=== PATIENT | female | born 1960 | race Caucasian/White ===

== ENCOUNTER 2025-02-23 08:50 | Outpatient (OUT) | payer MEDICARE, MEDICAID, SELFPAY ==
--- OUTSIDE RECORDS SUMMARY | 2014-12-31 06:00 | XMS_ITS | Continuity of Care Document ---
Author Organization [facility] Address [address] [place] [address] Phone Care Team Providers Care Transportation Coordinator Name Role Phone Danilo Godwin MD Unavailable Unavailable Procedures Procedure Date OFFICE CONSULTATION Advance Directives Directive Yes / No Effective Date File Name No Information Encounters Encounter Description Practice Location Reason(s) For Visit Diagnoses Date Provider Providers Copied on Encounter OFFICE CONSULTATION [facility], [address], [place], [place], [id number], [place] tel:[phone] [facility] No Information Tato Carrasco. [address], [place], [id number], [place]. tel:[phone] Referring Provider: Danilo Canales, [address], [place], [address]. tel:[phone] Family History Family Member Type Diagnosis Age At Onset No Information Payers Payer name Insurance type Covered democrat ID Authoriza tion(s) [place] [employer] CI [id number] Social History Type Description Quantity Date Captured Comments Sex Female Smoking Status No Information Chief Complaint And Reason For Visit No Information Reason For Referral Reason For Referral No Information History Of Present Illness Encounter Date Complaint History Of Prese nt Illness No Information Functional Status Date Functional Assessmen t No Information Instructions Date Instruction Additional Infor mation No Information Assessments Type Assessment Date No Information Patient Care Teams Name Effective Dates (start - stop) Status Members No Information
--- OUTSIDE RECORDS SUMMARY | 2025-02-22 05:57 | XMS_ITS | Continuity of Care Document ---
Author Organization [facility] Address [address] [place] [address] Phone Care Team Providers Care Cadet Deck Name Role Phone Roz Manley DO Primary Care Provider Roz Manley DO Attending Provider [phone] Care Teams Patient Care Team Team Status: Active Member Role Status Dates Roz Manley DO Primary Care Provider Active Patient Care Team Team Status: Inactive Member Role Status Dates Roz Manley DO Primary Care Provider Active S tart: February 22, 2025 End: February 22, 2025 Roz Manley DO Attending Provider Active Star t: February 22, 2025 End: February 22, 2025 Chief Complaint and Reason for Visit Chief Complaint Admit Date Migrain/UTI February 22, 2025 8: 59am Reason for Visit Admit Date Depression February 22, 2025 8: 59am Dysuria February 22, 2025 8: 59am Migraines February 22, 2025 8: 59am Obesity February 22, 2025 8: 59am Allergies, Adverse Reactions, Alerts Allergen Type Severity Reaction Last Updated Verified Status Penicillins Allergy Unknown Unknown Reaction February 22, 2025 9:13am Yes Active Social History Smoking Status Status Start Date End Date Date of Observa tion Never smoked tobacco (finding) February 22, 2025 9:12am Observation Status Observation Response Date of Response Legal Sex Female (finding) Sex Assigned At Female 1960 Family History Relationship Condition Age at Onset Recorded Date/T rehan father Myocardial infarction Unknown Diabetes mellitus Unknown Heart disease Unknown mother Hypertension Unknown Problems Active Problems Medical Problem Onset Date Status Depression Unknown Active Dysuria Unknown Active Migraines Unknown Active Obesity Unknown Active Medications Medication Status Dose Units Route Directions Qty Days St art Date Stop Date End Date Instructions Adherence Sertraline 100 mg tablet Discont inued 100 MG PO Daily Octobe r 2024 12:00a m Octob er 2024 9:44a m Albuterol Sulfate 90 mcg/actuati on HFA aerosol inhaler Discont inued 2 PUFF INHALA TION EVERY 4-6 HOURS as needed Octobe r 2024 12:00a m Octob er 2024 9:44a m Topiramate 50 mg tablet Discont inued 50 MG PO Twice daily Octobe r 2024 12:00a m Octob er 2024 9:44a m Topiramate 50 mg tablet Active 50 MG PO Twice daily 30 Octobe r 2024 9:43am Complies with drug therapy Sertraline 100 mg tablet Active 100 MG PO Daily 30 Febobe r 2024 9:43am Complies with drug therapy Albuterol Sulfate 90 mcg/actuati on HFA aerosol inhaler Active 2 PUFF INHALA TION EVERY 4-6 HOURS as needed for shortness of breath or wheezing 8.5 Febobe r 2024 9:43am Complies with drug therapy Vital Signs Vital Reading Result Reference Range Collection Date/Time Height 67 [in_i] February 22 9:05am Weight 125.64 kg February 22 9:05am Heart Rate 69 /min 60-100 February 22 9:05am Respiratory rate 20 /min -February 9:05am Oxygen saturation by Pulse oximetry 96 % 95-100 February 22, 2025 9: 05am BP Systolic 124 mm[Hg] 100-140 February 22 9:05am BP Diastolic 68 mm[Hg] 60-100 February 22 9:05am BMI (Body Mass Index) 43.4 kg/m2 Octobe r 2024 9:05am Advance Directives Advance Directive Response Recorded Date/ Time Advance Directives No January 11:40am Insurance Providers Guarantor Keisha Powell Address [address] [place] [address] Contact Info. Home Phone: Payer Policy Id Subscriber's Name Subscriber Id Effectiv e Date Expiration Date Medicare [id number] Keisha Powell [id number] Encounters Encounter Location(s) Arrival/Admit Date Discharge/Depart Date Provider(s) Departed Physician/Prov ider Office Visit -[facility] February 22, 2025 8:59am February 22, 2025 9:56am Roz Manley , Recent Diagnosis Onset Date Admit Date Depression Unknown February 22 8:59am Dysuria Unknown February 22 8:59am Migraines Unknown February 22 8:59am Obesity Unknown February 22 8:59am Assessments Diagnosis Onset Date Resolution Status Admit Date Depression acute February 22 8:59am Dysuria acute February 22 8:59am Migraines acute February 22 8:59am Obesity acute February 22 8:59am Plan of Treatment Author Roz Manley [facility] Authored February 22, 2025 9: 53am will check UA and urine cult ure and kidney function; if abnormal will consider renal ultrasound and prophylaxis; discussed cranberry suuplement continue zoloft; refill given refill given on Topamax will discuss further at next visit; get labs first Will send for fasting labs and UA/Urine culture return in 1 month for evaluation and further work up Future Tests Future scheduled test information is unavailable Pending Tests Test Name Ordered Date Scheduled Date Comprehensive Metabolic Panel February 22, 2025 9:44am Future Visits Future appointment information is unavailable Referrals to Other Providers Referral information is unavailable Future Procedures Procedure Name Ordered Date Scheduled Date Complete Blood Count Auto Diff February 22, 2025 9:44am Urine Culture February 22, 2025 9:44am Lipid Panel February 22, 2025 9:44am Urinalysis February 22, 2025 9:44am Future Medications Future medication information is unavailable Patient Instructions Patient instructions are unavailable
--- OUTSIDE RECORDS SUMMARY | 2025-02-23 09:01 | XMS_ITS | Clinical Summary ---
Author Organization [facility] Address [address] [place] [address] Care Team Providers Care Loan Processing Supervisor Name Role Phone Alejandro James MD Primary Care Provider [phone] Alejandro James MD Unavailable Allergies Active Allergy Reactions Criticality Noted Date Comments Penicillin G Unknown 09/10/2023 Medications SUMAtriptan (Imitrex) 100 MG tabletIndications: Migraine without aura and without status migrainosus, not intractable Take 1 tablet (100 mg) by mouth 1 (one) time if needed for migraine 9 tablet 5 4 Active albuterol HFA 90 mcg/act inhalerIndications :SOB (shortness of breath) Inhale 2 puffs every 4 (four) hours if needed for wheezing or shortness of breath 18 g 2 4 Active topiramate 50 MG tabletIndications: Migraine without aura and without status migrainosus, not intractable Take 50 mg by mouth in the morning and 50 mg before bedtime. 60 tablet 3 4 Active celecoxib (CeleBREX) 200 MG capsuleIndications :Primary osteoarthritis of both elbows TAKE 1 CAPSULE (200 MG) BY MOUTH 2 (TWO) TIMES A DAY NEEDED FOR MILD PAIN OR MODERATE PAIN 60 capsule 5 4 Active amitriptyline (Elavil) 50 MG tabletIndications: Migraine without aura and without status migrainosus, not intractable TAKE 1 TABLET BY MOUTH AT BEDTIME 90 tablet 1 4 Active sertraline (Zoloft) 100 MG tabletIndications: MDD (major depressive disorder), recurrent episode, moderate (HCC) TAKE 1 TABLET BY MOUTH EVERY DAY 90 tablet 1 5 Active lisinopril-hydroCH LOROthiazide 20-25 MG tabletIndications: Benign essential hypertension TAKE 1 TABLET BY MOUTH EVERY DAY 90 tablet 1 5 Active Active Problems Problem Noted Date Diagnosed Date Migraine without aura and wi thout status migrainosus, not intractable 06/12/2023 Assessment & Plan (09/10/2023 1:40 PM EDT): CHAUDHRY unchanged and increase topamax. Continue elavil. Use imitrex PRN. Assessment & Plan (06/12/2023 2:22 PM EST): CHAUDHRY more often and increase elavil. Use imitrex PRN. Chronic pain of left elbow 06/12/2023 Chronic pain of right ankle 06/12/2023 Dyslipidemia 06/12/2023 Hypersomnia, unspecified 06/12/2023 MDD (major depressive disord er), recurrent episode, moderate 06/12/2023 Assessment & Plan (09/10/2023 1:40 PM EDT): Symptoms unchanged and increase zoloft. Warned will take 2-3 months to notice improvement in mood. Assessment & Plan (06/12/2023 2:22 PM EST): Symptoms worse without zoloft and resume. Warned will take 2-3 months to notice improvement in mood. Primary osteoarthritis of both elbows 06/12/2023 Assessment & Plan (09/10/2023 1:39 PM EDT): Pain and stiffness unchanged and continue celebrex. Increase activity and walk regularly. Assessment & Plan (06/12/2023 2:22 PM EST): Pain and stiffness unchanged and resume celebrex. Morbid obesity 06/12/2023 Assessment & Plan (09/10/2023 1:39 PM EDT): Discussed proper diet and regular aerobic exercise. Recommend Weight Watchers and need to limit calories and smaller portions. Need to increase activity and regular aerobic exercise several days a week for 30 minutes at a time. Seasonal allergic rhinitis due to pollen 024 Assessment & Plan (09/10/2023 1:39 PM EDT): Symptoms controlled with medication and continue. Assessment & Plan (06/12/2023 2:22 PM EST): Symptoms controlled with medication and continue. Primary osteoarthritis, right ankle and foot Assessment & Plan (09/10/2023 1:39 PM EDT): Pain and stiffness unchanged and continue celebrex. Increase activity and walk regularly. Assessment & Plan (06/12/2023 2:22 PM EST): Pain and stiffness unchanged and resume celebrex. Encounter for long-term (current) use of medicat ions 06/12/2023 Benign essential hypertension 04/22/2023 Assessment & Plan (09/10/2023 1:40 PM EDT): BP controlled and monitor PRN. Assessment & Plan (06/12/2023 2:21 PM EST): BP controlled and monitor PRN. Family History Medical History Relation Name Comments Diabetes Father Heart disease Father Hypertension Mother Relation Name Status Comments Father Mother Social History Tobacco Use Types Packs/Day Years Used Date Smoking Tobacco: Never Smokeless Tobacco: Never Tobacco Cessation:Counseling Given: Not Answered Comments Unknown Sex and Gender Information Value Date Recorded Sex Assigned at Not on file Legal Sex Female 11:01 PM EDT Gender Identity Not on file Sexual Orientation Not on file Last Filed Vital Signs Vital Sign Reading Time Taken Comments Blood Pressure 140/76 09/10/2023 1:14 PM EDT Pulse 107 09/10/2023 1:14 PM EDT Temperature 36.7 C (98 F) 09/10/2023 1:14 PM EDT Respiratory Rate 18 09/10/2023 1:14 PM EDT Oxygen Saturation 96% 09/10/2023 1:14 PM EDT Inhaled Oxygen Concentration - - Weight 129 kg (284 lb) 09/10/2023 1:14 PM EDT Height 170.2 cm (5' 7 ) 09/10/2023 1:14 PM EDT Body Mass Index 44.48 09/10/2023 1:14 PM EDT Plan of Treatment Health Maintenance Due Date Last Done Comments CT Colonography 1960 Colonoscopy 1960 FIT 1960 FOBT 1960 Medicare Annual Wellness (AWV) 1960 Sigmoidoscopy 1960 Pap Smear 11/03/1980 Cervical Cancer Screening 11/03/1989 HPV/Cotest 11/03/1989 Pneumococcal Vaccine: 65+ Ye ars (2 of 2 - PCV) 08/01/2018 08/01/2017 Mammogram 06/21/2024 06/21/2023, 06/19/2023 Influenza Vaccine (#1) 2025 9, 08/01/2017, 01/25/2015, Additional history exists Colorectal Cancer Screening 07/04/2026 FIT-DNA 07/04/2026 07/04/2023 Procedures Procedure Name Priority Date/Time Associated Diagnosis Comments LAB COLOGUARD COLON CANCER SCREEN Routine 07/04/2023 10:20 AM EST BI MAMMOGRAM SCREENING TOMOSYNTHESIS BILATERAL Routine 06/19/2023 3:20 PM EST Screening mammogram for breast cancer from Last 3 Months or Most Recently Relevant to Health Maintenance Results * Cologuard?? colon cancer screening (07/04/2023 10:20 AM EST) Stool Alejandro James MD LAB MOLECULAR DIAGNOSTICS ORDERA BLES Final Result * Bilateral screening mammogram with tomosynthesis (06/19/2023 3:20 PM EST) Anatomical Region Laterality Modality Breast Bilateral Mammography 06/21/2023 1:53 PM EST Impressions 06/21/2023 2:40 PM EST BIRADS 2 - Benign Follow-up: Routine Screening Mamm Board Certified Radiologists. Accredited by the ACR and FDA. MAMMOGRAPHY IS VERY IMPORTANT TO YOUR HEALTH. THE [place] [employer] GUIDELINES RECOMMEND THAT WOMEN 40 YEARS OF AGE AND OLDER SHOULD HAVE A MAMMOGRAM EVERY YEAR. A REMINDER LETTER WILL BE SENT AT THE APPROPRIATE TIME. THIS FACILITY UTILIZES A REMINDER SYSTEM TO ENSURE ALL PATIENTS RECEIVE REMINDER NOTIFICATIONS AT THE APPROPRIATE TIME BASED ON THE RECOMMENDATIONS OF THIS EXAM. THIS INCLUDES REMINDERS FOR ROUTINE SCREENING MAMMOGRAMS, DIAGNOSTIC MAMMOGRAMS IN WHICH THE PATIENT IS ASKED TO RETURN FOR ADDITIONAL VIEWS, OR OTHER BREAST IMAGING INTERVENTIONS WHEN APPROPRIATE. THE PATIENT WILL BE PLACED IN THE APPROPRIATE REMINDER SYSTEM INCLUDING A REMINDER AT THE APPROPRIATE TIME FOR ANY PENDING ADDITIONAL VIEWS. TRANSCRIBED BY: ELECTRONICALLY SIGNED BY: Mars Mobley MD Narrative 06/21/2023 2:40 PM EST EXAMINATION: BI MAMMOGRAM SCREENING TOMOSYNTHESIS BILATERAL CLINICAL HISTORY:screening COMPARISON: May 12, 2019. RESULT: Digital mammography and 3D tomosynthesis of bilateral breasts was performed. Density: Almost entirely fatty [1] There is no suspicious mass, asymmetry, architectural distortion, or calcification. Typically benign calcifications. Overall appearance stable. Procedure Note Mars Mobley MD - 06/21/2023 EXAMINATION: BI MAMMOGRAM SCREENING TOMOSYNTHESIS BILATERAL CLINICAL HISTORY:screening COMPARISON: May 12, 2019. RESULT: Digital mammography and 3D tomosynthesis of bilateral breasts wasperformed. Density: Almost entirely fatty [1] There is no suspicious mass, asymmetry, architectural distortion, orcalcification. Typically benign calcifications. Overall appearance stable. IMPRESSION: BIRADS 2 - Benign Follow-up: Routine Screening Mamm Board Certified Radiologists. Accredited by the ACR and FDA. MAMMOGRAPHY IS VERY IMPORTANT TO YOUR HEALTH. THE [place] [employer] SOCIETYGUIDELINES RECOMMEND THAT WOMEN 40 YEARS OF AGE AND OLDER SHOULD HAVE AMAMMOGRAM EVERY YEAR. A REMINDER LETTER WILL BE SENT AT THE APPROPRIATE TIME. THIS FACILITYUTILIZES A REMINDER SYSTEM TO ENSURE ALL PATIENTS RECEIVE REMINDERNOTIFICATIONS AT THE APPROPRIATE TIME BASED ON THE RECOMMENDATIONS OF THISEXAM. THIS INCLUDES REMINDERS FOR ROUTINE SCREENING MAMMOGRAMS, DIAGNOSTICMAMMOGRAMS IN WHICH THE PATIENT IS ASKED TO RETURN FOR ADDITIONAL VIEWS,OR OTHER BREAST IMAGING INTERVENTIONS WHEN APPROPRIATE. THE PATIENT WILLBE PLACED IN THE APPROPRIATE REMINDER SYSTEM INCLUDING A REMINDER AT THEAPPROPRIATE TIME FOR ANY PENDING ADDITIONAL VIEWS. TRANSCRIBED BY: ELECTRONICALLY SIGNED BY: Mars Mobley MD Alejandro James MD IMG BI PROCEDURES Final Result from Last 3 Months or Most Recently Relevant to Health Maintenance Insurance MEDICARE MEDICAID [place] Care Teams Loan Processing Supervisor Relationship Specialty Start Date End Date Alejandro James MD PCP - General Family Medicine 06/12/23 Alejandro James MD [address] [facility] [place] [address] PCP - ACO Reach 06/26/24
--- OUTSIDE RECORDS SUMMARY | 2025-02-23 09:01 | XMS_ITS | Clinical Summary ---
Author Organization [employer] Address [id number] [address] [place] [address] Care Team Providers Care Tangled Yarn Worker Name Role Phone Alejandro James MD Primary Care Provider Social History Tobacco Use Types Packs/Day Years Used Date Smoking Tobacco: Never Assessed Childcare Answer Date Recorded Childcare Unknown 10/29/2018 Employment Answer Date Recorded Employment Unknown 10/29/2018 Purpose - Life Answer Date Recorded Purpose and direction in life Unknown Comments Unknown Sex and Gender Information Value Date Recorded Sex Assigned at Not on file Legal Sex Female 11:39 AM EDT Gender Identity Not on file Sexual Orientation Not on file Plan of Treatment Health Maintenance Due Date Last Done Comments Depression Screening 1971 Tobacco Screening 1971 Adult BMI Screening 11/03/1977 DTaP,Tdap and Td Vaccines (1 - Tdap) 11/03/1978 Zoster (Shingles) Vaccine (1 of 2) 11/03/2009 Fall Risk Screening 11/03/2024 Influenza Vaccine 01/18/2025 Medical Devices Not on file Insurance MEDICARE MEDICAID [place] Care Teams Tangled Yarn Worker Relationship Specialty Start Date End Date Alejandro James MD PCP - General 07/27/14
--- OUTSIDE RECORDS SUMMARY | 2025-02-23 09:01 | XMS_ITS | Encounter Summary ---
Author Organization [facility] Address [address] [place] [address] Care Team Providers Care Geoscience Laboratory Technician Name Role Phone Alejandro James MD Primary Care Provider [phone] Alejandro James MD Unavailable Encounter Details Date Type Department Care Team (Late st Contact Info) Description 07/18/2023 Orders Only [facility] [address] [place] [address] Alejandro James MD [address] [place] [address] Social History Tobacco Use Types Packs/Day Years Used Date Smoking Tobacco: Never Smokeless Tobacco: Never Comments Unknown Sex and Gender Information Value Date Recorded Sex Assigned at Not on file Legal Sex Female 11:01 PM EDT Gender Identity Not on file Sexual Orientation Not on file documented as of this encounter Plan of Treatment Not on file documented as of this encounter Procedures Procedure Name Priority Date/Time Associated Diagnosis Comments LAB COLOGUARD COLON CANCER SCREEN Routine 07/04/2023 10:20 AM EST documented in this encounter Results * Cologuard?? colon cancer screening (07/04/2023 10:20 AM EST) Stool Alejandro James MD LAB MOLECULAR DIAGNOSTICS ORDERA BLES Final Result documented in this encounter Visit Diagnoses Not on filedocumented in this encounter Care Teams Geoscience Laboratory Technician Relationship Specialty Start Date End Date Naderer, Alejandro, MD PCP - General Family Medicine 06/12/23 Alejandro James MD [address] [facility] [place] [address] PCP - ACO Reach 06/26/24 documented as of this encounter
[2025-02-23 09:34] LABS: Hematocrit 39.1 % (36.0-48.0); Hemoglobin 12.5 g/dL (12.0-16.0); Immature Granulocytes Abs Auto 0.03 10^3/uL (0.00-0.03); Immature Granulocytes Pct Auto 0.3 % (0.0-0.5); Lymphocytes Absolute Auto 3.2 10^3/uL (1.2-3.8); Mean Corpuscular HGB Conc 32.0 g/dL (29.9-35.2); Mean Corpuscular Hemoglobin 26.9 pg (26.7-34.0); Mean Corpuscular Volume 84.1 fL (81.0-99.0); Platelet Count 286 10^3/uL (150-450); Red Blood Count 4.65 10^6/uL (4.20-5.40); White Blood Count 12.0 10^3/uL (4.0-11.0)
[2025-02-23 09:51] LABS: Glucose Urine UA NEGATIVE (NEGATIVE)
[2025-02-23 09:56] LABS: Alanine Aminotransferase 19 U/L (14-59); Albumin Globulin Ratio 0.8; Albumin Level 3.4 g/dL (3.4-5.0); Alkaline Phosphatase 77 U/L (46-116); Anion Gap 14.8; Aspartate Amino Transferase 15 U/L (15-37); Blood Urea Nitrogen 31.0 mg/dL (7.0-18.0); Calcium 9.0 mg/dL (8.5-10.1); Carbon Dioxide 24.2 mmol/L (21.0-32.0); Chloride 105 mmol/L (98-107); Cholesterol 161 mg/dL (<=200); Estimated GFR (African America >60 (>=60 mL/min/1.73m^2); Estimated GFR (Non-African Ame >60 (>=60 mL/min/1.73m^2); Globulin 4.2 g/dL; Glucose 96 mg/dL (74-106); HDL Cholesterol 52 mg/dL (40-60); Potassium 4.0 mmol/L (3.5-5.1); Sodium 140 mmol/L (136-145); Total Protein 7.6 g/dL (6.4-8.2); Triglycerides 92 mg/dL (<=150); VLDL CHOLESTEROL 18.4 mg/dL
== END 2025-02-23 08:51 | disposition home or self-care (01) ==
PROVIDERS: PCP Family Medicine; Visit Provider Family Medicine
DX: R30.0 Dysuria (principal); F33.0 Major depressive disorder, recurrent, mild; E78.5 Hyperlipidemia, unspecified; G43.709 Chronic migraine without aura, not intractable, without status migrainosus
CPT/HCPCS: 36415; 80053; 80061; 81003; 85025; 87086; 87088; 87186

== ENCOUNTER 2025-03-02 10:50 | Outpatient (OUT) | payer MEDICARE, MEDICAID, SELFPAY ==
--- OUTSIDE RECORDS SUMMARY | 2025-02-23 20:51 | XMS_ITS | Continuity of Care Document ---
Author Organization [facility] Address [address] [place] [address] Phone Care Team Providers Care Tank Setter Name Role Phone Vineet Roz EDWARDS Primary Care Provider VineetRoz munoz DO Attending Provider Care Teams Visit Care Team Team Status: Inactive Member Role Status Dates Roz Webbp , DO Primary Care Provider Active S tart: February 22, 2025 End: February 22, 2025 Roz Vineet , DO Attending Provider Active Star t: February 22, 2025 End: February 22, 2025 Patient Care Team Team Status: Inactive Member Role Status Dates Roz Webbp , DO Attending Provider Active Star t: February 23, 2025 End: February 23, 2025 Patient Care Team Team Status: Active Member Role Status Dates Roz Webbp , DO Primary Care Provider Active S tart: February 23, 2025 Roz Vineet , DO Attending Provider Active Star t: February 23, 2025 Chief Complaint and Reason for Visit Chief Complaint Admit Date Migrain/UTI February 22, 2025 8: 59am Unknown February 23, 2025 9: 15am Reason for Visit Admit Date Depression February [...] Twice daily 30 Octobe r 2024 9:43am Unknown Sertraline 100 mg tablet Active 100 MG [facility] Unknown Albuterol Sulfate 90 mcg/actuati on HFA aerosol inhaler Active 2 PUFF INHALA TION EVERY 4-6 HOURS as needed for shortness of breath or wheezing 8.5 [facility] 9:43am Unknown Procedures Procedure Date Performed Status Urine Culture February 23, 2025 active Relevant Diagnostic Tests and/or Laboratory Data Laboratory Results Test Collection Date/Time Result Date/Time Result Interpretation Reference Range Result Comment Performing Site Urine Bilirubi n February 23, 2025 9:19am February 23, 2025 9:19am NEGATIVE NEGATIVE Choleste rol/HDL Ratio February 23, 2025 9:25am February 23, 2025 9:25am 3.1 3.3 - 4.4 LOW RISK4.4 - 7.1 AVERAGE RISK7.1 - 11.0 MODERATE RISK>11.0 HIGH RISK Anion Gap February 23, 2025 9:25am February 23, 2025 9:25am 14.8 Basophil s # (Auto) February 23, 2025 9:25am February 23, 2025 9:25am 0.1 10 3/uL 0.0-0.1 Urine Occult Blood February 23, 2025 9:19am February 23, 2025 9:19am NEGATIVE NEGATIVE Choleste rol Level February 23, 2025 9:25am February 23, 2025 9:25am 161 mg/dL <=200 Albumin/ Globulin Ratio February 23, 2025 9:25am February 23, 2025 9:25am 0.8 Basophil s (%) (Auto) February 23, 2025 9:25am February 23, 2025 9:25am 0.5 % 0.2-2.0 Urine Appearan ce February 23, 2025 9:19am February 23, 2025 9:19am CLEAR CLEAR HDL Choleste rol February 23, 2025 9:25am February 23, 2025 9:25am 52 mg/dL 40-60 > or =60 mg/dl - LOW CARDIOVASCU LAR RISK<40 mg/dl - HIGH CARDIOVASCU LAR RISK Albumin February 23, 2025 9:25am February 23, 2025 9:25am 3.4 g/dL 3.4-5.0 Eosinoph ils # (Auto) February 23, 2025 9:25am February 23, 2025 9:25am 0.3 10 3/uL 0.0-0.7 Urine Color February 23, 2025 9:19am February 23, 2025 9:19am LT. YELLOW YELLOW LDL Choleste rol, Calculat ed February 23, 2025 9:25am February 23, 2025 9:25am 90.6 mg/dL <100 mg/dl [id number]- 129 mg/dl NEAR OR ABOVE [id number]- 159 mg/dl BORDERLINE [id number] mg/dl HIGH>190 mg/dl VERY HIGH Alkaline Phosphat ase February 23, 2025 9:25am February 23, 2025 9:25am 77 U/L 46-116 Eosinoph ils (%) (Auto) February 23, 2025 9:25am February 23, 2025 9:25am 2.2 % 0.9-7.0 Urine Glucose (UA) February 23, 2025 9:19am February 23, 2025 9:19am NEGATIVE mg/dL NEGATIVE Triglyce rides Level February 23, 2025 9:25am February 23, 2025 9:25am 92 mg/dL <=150 Alanine Aminotra nsferase (ALT/SGP T) February 23, 2025 9:25am February 23, 2025 9:25am 19 U/L 14-59 Hematocr it February 23, 2025 9:25am February 23, 2025 9:25am 39.1 % 36.0-48.0 Urine Ketones February 23, 2025 9:19am February 23, 2025 9:19am NEGATIVE mg/dL NEGATIVE VLDL Choleste rol February 23, 2025 9:25am February 23, 2025 9:25am 18.4 mg/dL Aspartat e Amino Transf (AST/SGO T) February 23, 2025 9:25am February 23, 2025 9:25am 15 U/L 15-37 Hemoglob in February 23, 2025 9:25am February 23, 2025 9:25am 12.5 g/dL 12.0-16.0 Urine Leukocyt e Esterase February 23, 2025 9:19am February 23, 2025 9:19am NEGATIVE NEGATIVE BUN/Crea tinine Ratio February 23, 2025 9:25am February 23, 2025 9:25am 44.9 Immature Granuloc yte # (Auto) February 23, 2025 9:25am February 23, 2025 9:25am 0.03 10 3/uL 0.00-0.03 Urine Nitrite February 23, 2025 9:19am February 23, 2025 9:19am NEGATIVE NEGATIVE Blood Urea Nitrogen February 23, 2025 9:25am February 23, 2025 9:25am 31.0 mg/dL Above high normal 7.0-18.0 Immature Granuloc yte % (Auto) February 23, 2025 9:25am February 23, 2025 9:25am 0.3 % 0.0-0.5 Urine pH February 23, 2025 9:19am February 23, 2025 9:19am 5.5 5.0-9.0 Calcium Level February 23, 2025 9:25am February 23, 2025 9:25am 9.0 mg/dL 8.5-10.1 Lymphocy cj # (Auto) February 23, 2025 9:25am February 23, 2025 9:25am 3.2 10 3/uL 1.2-3.8 Urine Protein February 23, 2025 9:19am February 23, 2025 9:19am NEGATIVE mg/dL NEG/TRACE Chloride Level February 23, 2025 9:25am February 23, 2025 9:25am 105 mmol/L 98-107 Lymphocy cj (%) (Auto) February 23, 2025 9:25am February 23, 2025 9:25am 27.0 % 20.5-60.0 Urine Specific [place] February 23, 2025 9:19am February 23, 2025 9:19am 1.025 1.005-1.02 5 Carbon Dioxide Level February 23, 2025 9:25am February 23, 2025 9:25am 24.2 mmol/L 21.0-32.0 Mean Corpuscu lar Hemoglob in February 23, 2025 9:25am February 23, 2025 9:25am 26.9 pg 26.7-34.0 Urine Urobilin ogen February 23, 2025 9:19am February 23, 2025 9:19am 0.2 EU/dL 0.2-1.0 Creatini ne February 23, 2025 9:25am February 23, 2025 9:25am 0.69 mg/dL 0.55-1.02 Mean Corpuscu lar Hemoglob in Concent February 23, 2025 9:25am February 23, 2025 9:25am 32.0 g/dL 29.9-35.2 Estimate d GFR ( ) February 23, 2025 9:25am February 23, 2025 9:25am >60 >=60 mL/min/1.7 3m 2 Mean Corpuscu lar Volume February 23, 2025 9:25am February 23, 2025 9:25am 84.1 fL 81.0-99.0 Estimate d GFR (Non-Afr ican Georgian February 23, 2025 9:25am February 23, 2025 9:25am >60 >=60 mL/min/1.7 3m 2 Monocyte s # (Auto) February 23, 2025 9:25am February 23, 2025 9:25am 0.7 10 3/uL 0.3-0.8 Globulin February 23, 2025 9:25am February 23, 2025 9:25am 4.2 g/dL Monocyte s (%) (Auto) February 23, 2025 9:25am February 23, 2025 9:25am 5.8 % 1.7-12.0 Glucose Level February 23, 2025 9:25am February 23, 2025 9:25am 96 mg/dL 74-106 Mean Platelet Volume February 23, 2025 9:25am February 23, 2025 9:25am 8.7 fL Below low normal 9.5-13.5 Potassiu m Level February 23, 2025 9:25am February 23, 2025 9:25am 4.0 mmol/L 3.5-5.1 Neutroph ils # (Auto) February 23, 2025 9:25am February 23, 2025 9:25am 7.7 10 3/uL Above high normal 1.4-6.5 Sodium Level February 23, 2025 9:25am February 23, 2025 9:25am 140 mmol/L 136-145 Neutroph ils (%) (Auto) February 23, 2025 9:25am February 23, 2025 9:25am 64.2 % 43.0-75.0 Total Bilirubi n February 23, 2025 9:25am February 23, 2025 9:25am 0.5 mg/dL 0.2-1.0 Platelet Count February 23, 2025 9:25am February 23, 2025 9:25am 286 10 3/uL 150-450 Total Protein February 23, 2025 9:25am February 23, 2025 9:25am 7.6 g/dL 6.4-8.2 Red Blood Count February 23, 2025 9:25am February 23, 2025 9:25am 4.65 10 6/uL 4.20-5.40 Red Cell Distribu tion Width February 23, 2025 9:25am February 23, 2025 9:25am 14.7 % 11.0-15.0 Correcte d White Blood Count February 23, 2025 9:25am February 23, 2025 9:25am 12.0 10 3/uL Above high normal 4.0-11.0 Vital Signs Vital Reading Result Reference Range Collection Date/Time Height 67 [in_i] February 22 9:05am Weight 125.64 kg February 22 9:05am Heart Rate 69 /min 60-100 February 22 9:05am Respiratory rate 20 /min 12-24 February 9:05am Oxygen saturation by Pulse oximetry 96 % 95-100 February 22, 2025 9: 05am BP Systolic 124 mm[Hg] 100-140 October 6th, 20 25 9:05am BP Diastolic 68 mm[Hg] 60-100 February 22 9:05am BMI (Body Mass Index) 43.4 kg/m2 Octobe r 2024 9:05am Advance Directives Advance Directive Response Recorded Date/ Time Advance Directives No January 11:40am Insurance Providers Guarantor Keisha Powell Address [address] [place] [address] Contact Info. Home Phone: Payer Policy Id Subscriber's Name Subscriber Id Effectiv e Date Expiration Date Medicare [id number] Keisha Powell [id number] Encounters Encounter Location(s) Arrival/Admit Date Discharge/Depart Date Provider(s) Departed Physician/Prov ider Office Visit -[facility] February 22, 2025 8:59am February 22, 2025 9:56am Roz Manley DO Departed Referred -[facility] February 23, 2025 9:15am February 23, 2025 9:16am Roz Manley DO Non-patient / Non-visit -[facility] February 23, 2025 9:25am Roz Manley DO Recent Diagnosis Onset Date Admit Date Depression Unknown February 22 8:59am Dysuria Unknown February 22 8:59am Migraines Unknown February 22 8:59am Obesity Unknown February 22 8:59am Assessments Diagnosis Onset Date Resolution Status Admit Date Depression acute February 22 8:59am Dysuria acute February 22 8:59am Migraines acute February 22 8:59am Obesity acute February 22 8:59am Plan of Treatment Author Roz Manley [facility] Authored February 22, 2025 9: 53am will [...] Tests Test Name Ordered Date Scheduled Date Urine Culture February 23, 2025 9:15am Comprehensive Metabolic Panel February 22, 2025 9:44am Future Visits Future appointment information is unavailable Referrals to Other Providers Referral information is unavailable Future Procedures Procedure Name Ordered Date Scheduled Date Urine Culture February 23, 2025 12:51pm Octobe r 2024 9:15am Urine Culture February 22, 2025 9:44am Urinalysis February 22, 2025 9:44am Future Medications Future medication information is unavailable Patient Instructions Patient instructions are unavailable
--- OUTSIDE RECORDS SUMMARY | 2025-03-02 10:54 | XMS_ITS | Clinical Summary ---
Author Organization [facility] Address [address] [place] [address] Care Team Providers Care Fleet Manager Name Role Phone Alejandro James MD Primary Care Provider [phone] Alejandro James MD Unavailable Allergies Active Allergy [...] IS VERY IMPORTANT TO YOUR HEALTH. THE [employer] GUIDELINES RECOMMEND THAT WOMEN 40 [...] benign calcifications. Overall appearance stable. Procedure Note aMrs Mobley MD - 06/21/2023 EXAMINATION: BI MAMMOGRAM [...] IS VERY IMPORTANT TO YOUR HEALTH. THE [employer]IETY[employer]UIDELINES RECOMMEND THAT WOMEN 40 YEARS [...] Maintenance Insurance MEDICARE MEDICAID [place] Care Teams Fleet Manager Relationship Specialty Start Date End Date Alejandro James MD PCP - General Family Medicine 06/12/23 Alejandro James MD [address] [facility] [place] [address] PCP - ACO Reach 06/26/24
--- OUTSIDE RECORDS SUMMARY | 2025-03-02 10:54 | XMS_ITS | Encounter Summary ---
Author Organization [facility] Address [address] [place] [address] Care Team Providers Care Nurse Assistant Name Role Phone Alejandro James MD Primary Care Provider [phone] Alejandro James MD Unavailable Encounter Details Date Type Department Care Team (Late st Contact Info) Description 07/18/2023 Orders Only [facility] GONZALEZ [facility] [address] [place] [address] Alejandro James MD [address] [place] [address] Social History Tobacco Use Types Packs/Day Years [...] on filedocumented in this encounter Care Teams Nurse Assistant Relationship Specialty Start Date End Date Naderer, Alejandro, MD PCP - General Family Medicine 06/12/23 Alejandro James MD [address] [facility] [place] [address] PCP - ACO Reach 06/26/24 documented as of this encounter
== END 2025-03-02 10:51 | disposition home or self-care (01) ==
LOC: LAB 10:51
PROVIDERS: PCP Family Medicine; Visit Provider Family Medicine
DX: R30.0 Dysuria (principal)
CPT/HCPCS: 81003; 87086

== ENCOUNTER 2025-03-19 09:25 | Outpatient (OUT) | payer MEDICARE, MEDICAID, SELFPAY ==
--- OUTSIDE RECORDS SUMMARY | 2014-12-31 06:00 | XMS_ITS | Continuity of Care Document ---
Author Organization [facility] Address [address] [place] [address] Phone Care Team Providers Care Manager Clinical Research Name Role Phone Danilo Godwin MD Unavailable Unavailable Procedures Procedure Date OFFICE CONSULTATION Advance Directives Directive Yes / No Effective Date File Name No Information Encounters Encounter Description Practice Location Reason(s) For Visit Diagnoses Date Provider Providers Copied on Encounter OFFICE CONSULTATION [facility], [address] [facility], [place], [place], [id number], [place] tel:[phone] [facility] No Information Tato Carrasco. [address] [facility] [address], [place], [id number], [place]. tel:[phone] Referring Provider: Danilo Canales, [address], [place], [address]. tel:[phone] Family History Family Member Type Diagnosis Age At Onset No Information Payers Payer name Insurance type Covered republican ID Authoriza tion(s) [place] Ad[employer]age CI [id number] Social History Type Description Quantity Date Captured [...]
--- OUTSIDE RECORDS SUMMARY | 2025-03-16 07:37 | XMS_ITS | Continuity of Care Document ---
Author Organization [facility] Address [address] [place] [address] Phone Care Team Providers Care Cna Instructor Name Role Phone VineetRoz DO Primary Care Provider [phone] Vineet, Roz DO Attending Provider [phone] Care Teams Patient Care Team Team Status: Active Member Role/Relationship Status Dates Roz Vineet , DO Primary Care Provider Active Visit Care Team Team Status: Inactive Member Role/Relationship Status Dates Roz Vineet , DO Primary Care Provider Active S tart: February 22, 2025 End: February 22, 2025Jessica Vineet , DOAttending ProviderActiveStart: February 22, 2025 End: February 22, 2025 Visit Care Team Team Status: Inactive Member Role/Relationship Status Dates Roz Vineet , DO Attending Provider Active Star t: February 23, 2025 End: February 23, 2025 Visit Care Team Team Status: Active Member Role/Relationship Status Dates Roz Vineet , DO Primary Care Provider Active S tart: February 23, 2025 Roz Vineet , DOAttending ProviderActiveStart: February 23, 2025 Visit Care Team Team Status: Inactive Member Role/Relationship Status Dates Roz Vineet , DO Attending Provider Active Star t: March 02, 2025 End: March 02, 2025 Patient Care Team Team Status: Inactive Member Role/Relationship Status Dates Roz Vineet , DO Primary Care Provider Active S tart: March 16, 2025 End: March 16, 2025Jessica Vineet , DOAttending ProviderActiveStart: March 16, 2025 End: March 16, 2025 Chief Complaint and Reason for Visit Chief Complaint Admit Date Migrain/UTI February 22, 2025 8: 59am Unknown February 23, 2025 9: 15am Unknown March 02, 2025 1 0:55am Follow-up UTI March 16, 2025 1 1:02am Reason for Visit Admit Date Depression February 22, 2025 8: 59am Dysuria February 22, 2025 8: 59am Migraines February 22, 2025 8: 59am Obesity February 22, 2025 8: 59am Frequent UTI March 16, 2025 1 1:02am Obesity March 16, 2025 1 1:02am Allergies, Adverse Reactions, Alerts Allergen Type Severity Reaction Last Updated Verified Status Penicillins Allergy Unknown Unknown Reaction March 16, 2025 11:10am Yes Active Social History Smoking Status Status Start Date End Date Date of Observa tion Never smoked tobacco (finding) February 22, 2025 9:12am Observation Status Observation Response Date of Response Legal Sex Female (finding) [facility] 1960 Family History Relationship Condition Age at Onset Recorded Date/T rehan father Myocardial infarction Unknown Diabetes mellitusUnknownHeart diseaseUnknownmotherHypertensionUnknown Problems Active Problems Problem Diagnosis/Recorded Date Onset Date Stat Depression February 17, 2025 9:20am Unknown Act paul Dysuria February 22, 2025 9:42am Unknown Act paul Migraines February 17, 2025 9:20am Unknown Act paul Frequent UTI March 16, 2025 11:20am Unknown A ctive Obesity February 22, 2025 9:51am Unknown Act paul Medications Medication Status Dose Units Route Directions Qty Days Refills S tart Date Stop Date End Date Reason(s) Instructions Adherence Ciprofloxacin Hcl 500 mg tablet Discontinued 500 MG PO Twice daily 14 7 0 February 25, 2025 12:00am March 16, 2025 11:10amSertraline 100 mg ruodqcJcotoquntvjy427GRNXOauwx February 17, 2025 12:00amOctober 2024 9:44amAlbuterol Sulfate 90 mcg/actuation HFA aerosol ymjrpsbHkxwabfdskkr9LPVOEIBABNTUPPVRKLD 4-6 HOURS as neededFebruary 17, 2025 12:00amOctober 2024 9:44amTopiramate 50 mg tablet Pwmmznpwlbbk48XIHUWwgze dailyOct2024 12:00amOctober 2024 9:44am Topiramate 50 mg izwnirUjahwp69HYHHZkypq kyyct316Mkqlcbm 6th, 2025 9:43am Complies with drug therapySertraline 100 mg lsrusmXohzhi923YANLSwuox373Txynsuu 6th, 2025 9:43amComplies with drug therapyAlbuterol Sulfate 90 mcg/actuation HFA aerosol tncnffyJsxhhi4XJFWSAZPKCDWFOELQFT 4-6 HOURS as needed for shortness of breath or wheezing8.54Oct2024 9:43amComplies with drug therapy Procedures Procedure Date Performed Status Urine Culture February 23, 2025 completed Urine Culture March 02, 2025 completed Relevant Diagnostic Tests and/or Laboratory Data Laboratory Results Test Collection Date/Time Result Date/Time Result Interpretation Reference Range Result Comment Performing Site Urine Bilirubin February 23, 2025 9:19am February 23, 2025 9:19am NEGATIVE NEGATIVECholesterol/HDL RatioOcthazard [facility] 2024 9:25amOcth[facility] 2024 9:25am3.1 3.3 - 4.4 LOW RISK4.4 - 7.1 AVERAGE RISK7.1 - 11.0 MODERATE RISK>11.0 HIGH RISK Anion GapOcthazard arh regional medical center 2024 9:25amOcthazard ar[facility] 2024 9:25am14.8Basophils # (Auto) February 23, 2025 9:25amOcthazard ar[facility] 2024 9:25am0.1 10 3/uL0.0-0.1Urine Occult BloodOcthazard ar[facility] regional [facility] center 2024 9:19amOcthazard ar[facility] 2024 9:19amNEGATIVENEGATIVECholesterol LevelOcthazard ar[facility] 2024 9:25amOcthazard ar[facility] 2024 9:48gm271 mg/dL<=200 Albumin/Globulin RatioOcthazard ar[facility] 2024 9:25amOcthazard ar[facility] 2024 9:25am0.8 Basophils (%) (Auto)February 23, 2025 9:25amOcthazard ar[facility] 2024 9:25am0.5 %0.2-2.0 Urine AppearanceOcthazard arh regional medical center 2024 9:19amOctober 2024 9:19amCLEARCLEARHDL CholesterolOcthazard arh regional medical center 2024 9:25amOcthazard ar[facility] regional medical [facility] 2024 9:25am52 mg/dL40-60> or =60 mg/dl - LOW CARDIOVASCULAR RISK<40 mg/dl - HIGH CARDIOVASCULAR RISKAlbumin February 23, 2025 9:25amOctober 2024 9:25am3.4 g/dL3.4-5.0Eosinophils # (Auto)February 23, 2025 9:25amOctober 2024 9:25am0.3 10 3/uL0.0-0.7Urine ColorOct2024 9:19amOct2024 9:19amLT. YELLOWYELLOWLDL Cholesterol, CalculatedOct2024 9:25amOctober 2024 9:25am90.6 mg/dL<100 mg/dl IBSTOII815-741 mg/dl NEAR OR ABOVE YVMNGTR060-743 mg/dl BORDERLINE VAEF423-248 mg/dl HIGH>190 mg/dl VERY HIGHAlkaline PhosphataseOct2024 9:25amOct2024 9:25am77 U/A86-528Xpaiwxkqqhm (%) (Auto) February 23, 2025 9:25amOct2024 9:25am2.2 %0.9-7.0Urine Glucose (UA) February 23, 2025 9:19amOct2024 9:19amNEGATIVE mg/dLNEGATIVE Triglycerides LevelOct2024 9:25amOct2024 9:25am92 mg/dL<=150 Alanine Aminotransferase (ALT/SGPT)February 23, 2025 9:25amOct2024 9:25am19 U/Y25-54TebnbgcgcqLeqkvof 2024 9:25amOct2024 9:25am39.1 %36.0-48.0Urine KetonesOctober 2024 9:19amOct2024 9:19amNEGATIVE mg/dLNEGATIVEVLDL CholesterolOct2024 9:25amOctober 2024 9:25am 18.4 mg/dLAspartate Amino Transf (AST/SGOT)February 23, 2025 9:25amOctober 2024 9:25am15 U/Q89-21OsctuqfpkzLphyuwe 7th, 2025 9:25amOctober 2024 9:25am 12.5 g/dL12.0-16.0Urine Leukocyte EsteraseOct2024 9:19amOct2024 9:19amNEGATIVENEGATIVEBUN/Creatinine RatioOct2024 9:25amOct2024 9:25am44.9Immature Granulocyte # (Auto)February 23, 2025 9:25amOct2024 9:25am0.03 10 3/uL0.00-0.03Urine NitriteOct2024 9:19am February 23, 2025 9:19amNEGATIVENEGATIVEBlood Urea NitrogenOct2024 9:25amOct2024 9:25am31.0 mg/dLAbove high normal7.0-18.0Immature Granulocyte % (Auto)February 23, 2025 9:25amOct2024 9:25am0.3 %0.0-0.5 Urine pHOct2024 9:19amOct2024 9:19am5.55.0-9.0Calcium Level February 23, 2025 9:25amOct2024 9:25am9.0 mg/dL8.5-10.1Lymphocytes # (Auto)February 23, 2025 9:25amOct2024 9:25am3.2 10 3/uL1.2-3.8Urine ProteinOct2024 9:19amOct2024 9:19amNEGATIVE mg/dLNEG/TRACE Chloride LevelOct2024 9:25amOct2024 9:66jd460 mmol/L98-107 Lymphocytes (%) (Auto)February 23, 2025 9:25amOct2024 9:25am27.0 % 20.5-60.0Urine Specific GravityOct2024 9:19amOct2024 9:19am 1.0251.005-1.025Carbon Dioxide LevelOct2024 9:25amOct2024 9:25am24.2 mmol/L21.0-32.0Mean Corpuscular HemoglobinOct2024 9:25am February 23, 2025 9:25am26.9 pg26.7-34.0Urine UrobilinogenOct2024 9:19amOct2024 9:19am0.2 EU/dL0.2-1.0CreatinineOct2024 9:25am February 23, 2025 9:25am0.69 mg/dL0.55-1.02Mean Corpuscular Hemoglobin Concent February 23, 2025 9:25amOctober 2024 9:25am32.0 g/dL29.9-35.2Estimated GFR ()February 23, 2025 9:25amOctober 2024 9:25am>60>=60 mL/min/1.73m 2Mean Corpuscular VolumeOct2024 9:25amOctober 2024 9:25am84.1 fL81.0-99.0Estimated GFR (Non- AmericanOct2024 9:25amOctober 2024 9:25am>60>=60 mL/min/1.73m 2Monocytes # (Auto)February 23, 2025 9:25amOctober 2024 9:25am0.7 10 3/uL0.3-0.8GlobulinFebruary 23, 2025 9:25amOctober 2024 9:25am4.2 g/dLMonocytes (%) (Auto)February 23, 2025 9:25amOctober 2024 9:25am5.8 %1.7-12.0Glucose LevelOct2024 9:25am February 23, 2025 9:25am96 mg/xD21-954Rxeo Platelet VolumeOct2024 9:25amOct2024 9:25am8.7 fLBelow low normal9.5-13.5Potassium Level February 23, 2025 9:25amOctober 2024 9:25am4.0 mmol/L3.5-5.1Neutrophils # (Auto)February 23, 2025 9:25amOctober 2024 9:25am7.7 10 3/uLAbove high normal1.4-6.5Sodium LevelOct5 9:25amOctober 2024 9:54yb260 mmol/R740-228Wvvewqpmwnr (%) (Auto)February 23, 2025 9:25amOctober 2024 9:25am64.2 %43.0-75.0Total BilirubinOct2024 9:25amOctober 2024 9:25am0.5 mg/dL0.2-1.0Platelet CountOctober 2024 9:25amOctober 2024 9:05vd846 10 3/kK119-989Xcvuh ProteinOctober 2024 9:25amOctober 2024 9:25am7.6 g/dL6.4-8.2Red Blood CountOctober 2024 9:25amOct2024 9:25am4.65 10 6/uL4.20-5.40Red Cell Distribution WidthOct2024 9:25am February 23, 2025 9:25am14.7 %11.0-15.0Corrected White Blood CountOctober 2024 9:25amOct2024 9:25am12.0 10 3/uLAbove high normal4.0-11.0 Microbiology Results Procedure Source Result Collection Date/Time Result Date/Time Result Comment Performing Site Urine Culture Urine, Clean-Voided Midstream Escherichia coli February 23, 2025 9:15am February 25, 2025 9:07am [facility] [id number] [address] [facility] [address]Dzfee CultureUrine, Not Otherwise SpecifiedNo Growth 2 Days March 02, 2025 10:55amOct2024 10:27am[facility] [id number] [address] [facility] [address] Vital Signs Vital Reading Result Reference Range Collection Date/Time Height 67 [in_i] February 22, 2025 9:13ueRentgj238.64 kgOctober 2024 9:05amHeart Rate69 /min 60-100February 22, 2025 9:05amRespiratory rate20 /sse23-92YtgcztnFebruary 22, 2025 9:05amOxygen saturation by Pulse gjemiimm55 %95-100February 22, 2025 9:05amBP Igpiyfem758 mm[Hg]100-140Octh[facility] 2024 9:05amBP Hhcnxqeil68 mm[Hg]60-100 February 22, 2025 9:05amBMI (Body Mass Index)43.4 kg/y8Fwnkgyh 2024 9:05am Xehing20 [in_i]March 16, 2025 11:98qtZytcly073.37 [facility] 2024 11:06amHeart Rate69 /pwt54-480UmkilhvMarch 16, 2025 11:06amRespiratory rate20 /min 12-24Oct2024 11:06amOxygen saturation by Pulse ipuxmztf11 %95-100 March 16, 2025 11:06amBP Cxtlimmo249 mm[Hg]100-140[facility] 2024 11:06am BP Kluwzcmsa59 mm[Hg]60-100[facility] 2024 11:06amBMI (Body Mass Index)49.7 kg/i4Mgdtjdr 2024 11:06am Advance Directives Advance Directive Response Recorded Date/ Time Advance Directives No January 11:40am Insurance Providers Guarantor Keisha Powell Address [address] [place], [place] [address]Contact Info.Home Phone: Coverage Status Update:2025 Payer Group Member ID Coverage Type Subscriber Relationship to Subscriber Effective Date Expiration Date Medicaid [id number] Josefa Powell Id: [id number] [address] [place] [address] Home Phone: SelfMedicare [id number] Josefa Powell Id: [id number] [address] [place] [address] Home Phone: Self Encounters Encounter Location(s) Arrival/Admit Date Discharge/Departure Date Discharge/Departure Disposition Provider(s) Departed Physician/ Provider Office Visit -[facility] February 22, 2025 8:59am February 22, 2025 9:56am Discharged to home care or self care (routine discharge) Roz Manley DO Departed Referred -[facility] February 23, 2025 9:15am February 23, 2025 9:16am Discharged to home care or self care (routine discharge) Roz Manley DO Non-patient / Non-visit -[facility] ctober 2024 9:25am Erick Cordon [facility] 10:55amOctober 2024 10:56amDischarged to home care or self care (routine discharge)Erick Cordon Physician/Provider Office Visit-[facility] Family Medicine [place] 2024 11:02amOctober 2024 11:36amDischarged to home care or self care (routine discharge)Roz Manley DO Recent Diagnosis Onset Date Admit Date Depression Unknown February 22 8:59am Dysuria Unknown February 22 8:59am Migraines Unknown February 22 8:59am Obesity Unknown February 22 8:59am Frequent UTI Unknown March 16 11:02am Obesity Unknown March 16 11:02am Assessments Diagnosis Onset Date Resolution Status Admit Date Depression acuteFebruary 22, 2025 8:59amDysuriaacuteOctober 2024 8:59amMigrainesacute February 22, 2025 8:59amObesityacuteOctober 2024 8:59amFrequent UTIacute March 16, 2025 11:02amObesityacuteOctober 2024 11:02am Plan of Treatment Author [facility] 20[facility] 9:53amwill check UA and urine culture and kidney function; if abnormal will consider [...] Comprehensive Metabolic Panel February 22, 2025 9:44am US bladderOctober 2024 11:18amUS renal BIOctober 2024 11:18am Future Visits Future appointment information is unavailable Future Procedures Procedure Name Ordered Date Scheduled Date Urine Culture February 22, 2025 9:44am UrinalysisOct2024 9:44am Future Medications Future medication information is unavailable Patient Instructions Patient instructions are unavailable
--- NOTE | 2025-03-19 09:28 | US_ITS ---
The [address] [address] Patient Name: SHERIF MARTINEZ MRN: [id number] date: 1960 Sex: F Assigned Patient Location: Current Patient Location: US Accession/Order Number: [id number] Exam Date: 03/19/2025 09:35 Report Date: 03/19/2025 11:05 At the request of: PARISA HARRY DO Procedure: US renal bladder BILATERAL RENAL AND BLADDER ULTRASOUND CLINICAL HISTORY: Frequent Urinary Tract Infection COMPARISON: None Estimation of renal size is approximately 10.2 cm on the right and 11.6 cm on the left. No shadowing calculi are identified. There is no hydronephrosis on the right though there is mild pelvocaliectasis on the left. No renal mass lesions were imaged. There is no perinephric fluid. The urinary bladder is not well distended with a volume of 55 mL. No contour or intraluminal abnormalities are seen. Bilateral ureteral jets are seen. The post void bladder residual is 13 mL. US/US renal bladder IMPRESSION: MILD LEFT HYDRONEPHROSIS OF UNKNOWN ETIOLOGY. Impression dictated by: Anitra Patton M.D. 03/19/2025 11:05 AM Dictation Location: [place] [address] Electronically authenticated by: [id number] Y Date: 03/19/2025 11:05
--- OUTSIDE RECORDS SUMMARY | 2025-03-19 09:28 | XMS_ITS | Clinical Summary ---
Author Organization [facility] Healthcare Address [address] [place] [address] Care Team Providers Care Catalyst Operator Chief Name Role Phone Alejandro James MD Primary Care Provider [phone] Alejandro James MD Unavailable Allergies Active AllergyReactionsCriticalityNoted DateCommentsPenicillin GUnknown 09/10/2023 Medications MedicationSigDispense QuantityRefillsLast FilledStart DateEnd DateStatus SUMAtriptan (Imitrex) 100 MG tablet Indications:Migraine without aura and without status migrainosus, not intractableTake 1 tablet (100 mg) by mouth 1 (one) time if needed for migraine 9 tablet ctive albuterol HFA 90 mcg/act inhaler Indications:SOB (shortness of breath)Inhale 2 puffs every 4 (four) hours if needed for wheezing or shortness of breath 18 g ctive topiramate 50 MG tablet Indications:Migraine without aura and without status migrainosus, not intractableTake 50 mg by mouth in the morning and 50 mg before bedtime. 60 tablet ctive celecoxib (CeleBREX) 200 MG capsule Indications:Primary osteoarthritis of both elbowsTAKE 1 CAPSULE (200 MG) BY MOUTH 2 (TWO) TIMES A DAY NEEDED FOR MILD PAIN OR MODERATE PAIN 60 capsule 5012/25/2023ctive amitriptyline (Elavil) 50 MG tablet Indications:Migraine without aura and without status migrainosus, not intractableTAKE 1 TABLET BY MOUTH AT BEDTIME 90 tablet ctive sertraline (Zoloft) 100 MG tablet Indications:MDD (major depressive disorder), recurrent episode, moderate (HCC) TAKE 1 TABLET BY MOUTH EVERY DAY 90 tablet 5Active lisinopril-hydroCHLOROthiazide 20-25 MG tablet Indications:Benign essential hypertensionTAKE 1 TABLET BY MOUTH EVERY DAY 90 tablet 5Active Active Problems ProblemNoted DateDiagnosed DateMigraine without aura and without status migrainosus, not hhnldhrindt33/24/2024 Assessment & Plan (09/10/2023 1:40 PM EDT): CHAUDHRY unchanged and increase topamax. Continue elavil. Use imitrex PRN. Assessment & Plan (06/12/2023 2:22 PM EST): CHAUDHRY more often and increase elavil. Use imitrex PRN. Chronic pain of left elbow06/12/2023hronic pain of right ankle06/12/2023 Vpjcoaahvkns17/24/2024Hypersomnia, cnreztosttf11/24/2024MDD (major depressive disorder), recurrent episode, /24/2024 Assessment & Plan (09/10/2023 1:40 PM EDT): Symptoms unchanged and increase zoloft. Warned will take 2-3 months to notice improvement in mood. Assessment & Plan (06/12/2023 2:22 PM EST): Symptoms worse without zoloft and resume. Warned will take 2-3 months to notice improvement in mood. Primary osteoarthritis of both uabfmn9506/12/2023 Assessment & Plan (09/10/2023 1:39 PM EDT): Pain and stiffness unchanged and continue celebrex. Increase activity and walk regularly. Assessment & Plan (06/12/2023 2:22 PM EST): Pain and stiffness unchanged and resume celebrex. Morbid qngfifz7506/12/2023 Assessment & Plan (09/10/2023 1:39 PM EDT): Discussed proper diet and regular aerobic exercise. Recommend Weight Watchers and need to limit calories and smaller portions. Need to increase activity and regular aerobic exercise several days a week for 30 minutes at a time. Seasonal allergic rhinitis due to wniahf7606/12/2023 Assessment & Plan (09/10/2023 1:39 PM EDT): Symptoms controlled with medication and continue. Assessment & Plan (06/12/2023 2:22 PM EST): Symptoms controlled with medication and continue. Primary osteoarthritis, right ankle and foot06/12/2023 Assessment & Plan (09/10/2023 1:39 PM EDT): Pain and stiffness unchanged and continue celebrex. Increase activity and walk regularly. Assessment & Plan (06/12/2023 2:22 PM EST): Pain and stiffness unchanged and resume celebrex. Encounter for long-term (current) use of hqlfvfcgcic95/24/2024enign essential lbflijtlwgpa69/04/2023 Assessment & Plan (09/10/2023 1:40 PM EDT): BP controlled and monitor PRN. Assessment & Plan (06/12/2023 2:21 PM EST): BP controlled and monitor PRN. Family History Medical HistoryRelationNameCommentsDiabetesFatherHeart diseaseFatherHypertension MotherRelationNameStatusCommentsFatherMother Social History Tobacco UseTypesPacks/DayYears UsedDateSmoking Tobacco: NeverSmokeless Tobacco: Never Tobacco Cessation:Counseling Given: Not Answered CommentsUnknownSex and Gender InformationValueDate RecordedSex Assigned at BirthNot on fileLegal JkpEvnnfv18/15/2023 11:01 PM EDTGender IdentityNot on fileSexual OrientationNot on file Last Filed Vital Signs Vital SignReadingTime TakenCommentsBlood Plklerzn843/7604 1:14 PM EDT Pvfep45817 1:14 PM EKRWavfhscmvtt76.7 ??C (98 ??F)09/10/2023 1:14 PM EDT Respiratory Cpxp037509/10/2023 1:14 PM EDTOxygen Afsmwtselw22%09/10/2023 1:14 PM EDTInhaled Oxygen Concentration--Zakosq835 kg (284 lb)09/10/2023 1:14 PM EDT Upsyaj917.2 cm (5' 7 )09/10/2023 1:14 PM EDTBody Mass Index44.48009/10/2023 1:14 PM EDT Plan of Treatment Health MaintenanceDue DateLast DoneCommentsCT Btnllcvpfmzp11/17/1960Colonoscopy 1960FIT1960FOBT1960Medicare Annual Wellness (AWV)1960 Kjnqtbwximjnv12/17/1960Pap Smear11/03/1980Cervical Cancer Urtdceuft75/17/1990 HPV/Kpcncf0411/03/1989Pneumococcal Vaccine: 65+ Years (2 of 2 - PCV)08/01/2018 08/01/20173710Vfnvmoxth80/02/202502/06/2023, 06/19/2023Influenza Vaccine (#1) /11/2018, 08/01/2017, 01/25/2015, Additional history exists Colorectal Cancer Ecbjymipb73/15/2027FIT-DNA Procedures Procedure NamePriorityDate/TimeAssociated DiagnosisCommentsLAB COLOGUARD?? COLON CANCER THYLUXGrcobzg45/15/2024 10:20 AM ESTBI MAMMOGRAM SCREENING TOMOSYNTHESIS JKXRZFQQJUqyinpz23/31/2024 3:20 PM EST Screening mammogram for breast cancer from Last 3 Months or Most Recently Relevant to Health Maintenance Results * Cologuard?? colon cancer screening (07/04/2023 10:20 AM EST)Specimen (Source) Anatomical Location / LateralityCollection Method / VolumeCollection Time Received TimeStool Narrative Authorizing ProviderResult TypeResult StatusMarjose antonio MARTINEZ MOLECULAR DIAGNOSTICS ORDERABLESFinal Result * Bilateral screening mammogram with tomosynthesis (06/19/2023 3:20 PM EST) Anatomical RegionLateralityModalityBreastBilateralMammographySpecimen (Source) Anatomical Location / LateralityCollection Method / VolumeCollection Time Received Time06/21/2023 1:53 PM EST Impressions 06/21/2023 2:40 PM EST BIRADS 2 - Benign Follow-up: ??Routine Screening Mamm Board Certified Radiologists. ??Accredited by the ACR and FDA. MAMMOGRAPHY IS VERY IMPORTANT TO YOUR HEALTH. ??THE [place] [employer] GUIDELINES RECOMMEND THAT WOMEN 40 YEARS OF AGE AND OLDER SHOULD HAVE A MAMMOGRAM EVERY YEAR. A REMINDER LETTER WILL BE SENT AT THE APPROPRIATE TIME. ??THIS FACILITY UTILIZES A REMINDER SYSTEM TO ENSURE ALL PATIENTS RECEIVE REMINDER NOTIFICATIONS AT THE APPROPRIATE TIME BASED ON THE RECOMMENDATIONS OF THIS EXAM. THIS INCLUDES REMINDERS FOR ROUTINE SCREENING MAMMOGRAMS, DIAGNOSTIC MAMMOGRAMSIN WHICH THE PATIENT IS ASKED TO RETURN FOR ADDITIONAL VIEWS, OR OTHER BREAST IMAGING INTERVENTIONSWHEN APPROPRIATE. THE PATIENT WILL BE PLACED IN THE APPROPRIATE REMINDER SYSTEM INCLUDING A REMINDER AT THE APPROPRIATE TIME FOR ANY PENDING ADDITIONAL VIEWS. TRANSCRIBED BY: ? ELECTRONICALLY SIGNED BY: Mars Mobley MD Narrative 06/21/2023 2:40 PM EST EXAMINATION: BI MAMMOGRAM SCREENING TOMOSYNTHESIS BILATERAL CLINICAL HISTORY:screening COMPARISON: May 12, 2019. RESULT: Digital mammography and 3D tomosynthesis of bilateral breasts was performed. Density: Almost entirely fatty [1] There is no suspicious mass, asymmetry, architectural distortion, or calcification. ??Typically benign calcifications. ??Overall appearance stable. ?? Procedure Note Mars Mobley MD - 06/21/2023 EXAMINATION: BI MAMMOGRAM SCREENING TOMOSYNTHESIS BILATERAL CLINICAL HISTORY:screening COMPARISON: May 12, 2019. RESULT: Digital mammography and 3D tomosynthesis of bilateral breasts wasperformed. Density: Almost entirely fatty [1] There is no suspicious mass, asymmetry, architectural distortion, or calcification. Typically benign calcifications. Overall appearance stable. IMPRESSION: BIRADS 2 - Benign Follow-up: Routine Screening Mamm Board Certified Radiologists. Accredited by the ACR and FDA. MAMMOGRAPHY IS VERY IMPORTANT TO YOUR HEALTH. THE [place] [employer] GUIDELINES RECOMMEND THAT WOMEN 40 [...] BY: ELECTRONICALLY SIGNED BY: Mars Mobley MD Authorizing ProviderResult TypeResult StatusMarc Erika RUBIO BI PROCEDURES Final Result from Last 3 Months or Most Recently Relevant to Health Maintenance Insurance Care Teams Team MemberRelationshipSpecialtyStart DateEnd Date Alejandro James MD PCP - GeneralFamily Medicine06/12/23 Alejandro James MD [address] [place] [address] PCP - [facility]06/26/24
--- OUTSIDE RECORDS SUMMARY | 2025-03-19 09:28 | XMS_ITS | Clinical Summary ---
Author Organization [facility] tem Address [facility] [place]-[id number] [address] [place] [address] Care Team Providers Care Lactation Nurse Name Role Phone Alejandro James MD Primary Care Provider [phone] Social History Tobacco UseTypesPacks/DayYears UsedDateSmoking Tobacco: Never AssessedChildcare AnswerDate CuanlsofQyxlyjvwnWdtvzju93/12/2019EmploymentAnswerDate Recorded KhpagpdbwaNakzxwt50/12/2019Purpose - LifeAnswerDate RecordedPurpose and direction in jtilUhedeoa93/11/2021CommentsUnknownSex and Gender InformationValueDate RecordedSex Assigned at BirthNot on fileLegal SexFemale 12/23/2014 11:39 AM EDTGender IdentityNot on fileSexual OrientationNot on file Plan of Treatment Health MaintenanceDue DateLast DoneCommentsDepression Imbzqdazd41/17/1972Tobacco Rwxuxiiki98/17/1972Adult BMI Otadohbby13/17/1978DTaP,Tdap and Td Vaccines (1 - Tdap)11/03/1978Zoster (Shingles) Vaccine (1 of 2)11/03/2009Fall Risk Screening 11/03/2024Influenza Qogrsef2601/18/2025 Medical Devices Not on file Insurance Care Teams Team MemberRelationshipSpecialtyStart DateEnd Date Alejandro James MD [facility]07/27/14
== END 2025-03-19 09:26 | disposition home or self-care (01) ==
LOC: US 09:25
PROVIDERS: PCP Family Medicine; Visit Provider Family Medicine
DX: N39.0 Urinary tract infection, site not specified (principal); N13.30 Unspecified hydronephrosis
CPT/HCPCS: 76770

== ENCOUNTER 2025-03-26 08:59 | Outpatient (OUT) | payer MEDICARE, MEDICAID, SELFPAY ==
--- OUTSIDE RECORDS SUMMARY | 2025-03-26 09:01 | XMS_ITS | Clinical Summary ---
Author Organization [facility] Healthcare Address [address] [place] [address] Care Team Providers Care Railroad Mechanic Name Role Phone Alejandro James MD Primary Care Provider [phone] Alejandro James MD Unavailable Allergies Active AllergyReactionsCriticalityNoted [...] without aura and without status migrainosus, not xqqvxiamlrj87/24/2024 Assessment & Plan (09/10/2023 1:40 PM EDT): CHAUDHRY unchanged and increase topamax. Continue elavil. Use imitrex PRN. Assessment & Plan (06/12/2023 2:22 PM EST): CHAUDHRY more often and increase elavil. Use imitrex PRN. Chronic pain of left elbow06/12/2023hronic pain of right ankle06/12/2023 Otncisofdpmy27/24/2024Hypersomnia, vyhxjctuksb85/24/2024MDD (major depressive disorder), recurrent episode, flamtewv90/24/2024 Assessment & Plan (09/10/2023 1:40 PM EDT): Symptoms unchanged and increase zoloft. Warned will take 2-3 months to notice improvement in mood. Assessment & Plan (06/12/2023 2:22 PM EST): Symptoms worse without zoloft and resume. Warned will take 2-3 months to notice improvement in mood. Primary osteoarthritis of both bjrdlj4506/12/2023 Assessment & Plan (09/10/2023 1:39 PM EDT): Pain and stiffness unchanged and continue celebrex. Increase activity and walk regularly. Assessment & Plan (06/12/2023 2:22 PM EST): Pain and stiffness unchanged and resume celebrex. Morbid figxycz7706/12/2023 Assessment & Plan (09/10/2023 1:39 PM EDT): Discussed proper diet and regular aerobic exercise. Recommend Weight Watchers and need to limit calories and smaller portions. Need to increase activity and regular aerobic exercise several days a week for 30 minutes at a time. Seasonal allergic rhinitis due to mlpgrr6506/12/2023 Assessment & Plan (09/10/2023 1:39 PM EDT): [...] celebrex. Encounter for long-term (current) use of bmoauqnyhzx30/24/2024enign essential srndrqdiprrt58/04/2023 Assessment & Plan (09/10/2023 1:40 PM EDT): BP controlled and monitor PRN. Assessment & Plan (06/12/2023 2:21 PM EST): BP controlled and monitor PRN. Family History Medical HistoryRelationNameCommentsDiabetesFatherHeart diseaseFatherHypertension MotherRelationNameStatusCommentsFatherMother Social History Tobacco UseTypesPacks/DayYears UsedDateSmoking Tobacco: NeverSmokeless Tobacco: Never Tobacco Cessation:Counseling Given: Not Answered CommentsUnknownSex and Gender InformationValueDate RecordedSex Assigned at BirthNot on fileLegal KzpHxfuno73/15/2023 11:01 PM EDTGender IdentityNot on fileSexual OrientationNot on file Last Filed Vital Signs Vital SignReadingTime TakenCommentsBlood Fhzsulhx233/7604 1:14 PM EDT Yufgt70925 1:14 PM UJTGohbkpqcyob50.7 ??C (98 ??F)09/10/2023 1:14 PM EDT Respiratory Vrxe644809/10/2023 1:14 PM EDTOxygen Lpyfkghibc11%09/10/2023 1:14 PM EDTInhaled Oxygen Concentration--Uycrdl876 kg (284 lb)09/10/2023 1:14 PM EDT Imxveu390.2 cm (5' 7 )09/10/2023 1:14 PM EDTBody Mass Index44.48009/10/2023 1:14 PM EDT Plan of Treatment Health MaintenanceDue DateLast DoneCommentsCT Wqtcqedqpqjl41/17/1960Colonoscopy 1959FIT1959FOBT1959Medicare Annual Wellness (AWV)1959 Myueojwwwyxtb84/17/1960Pap Smear11/03/1980Cervical Cancer Mbyofbkfp45/17/1990 HPV/Eajegs3911/03/1989Pneumococcal Vaccine: 65+ Years (2 of 2 - PCV)08/01/2018 08/01/20179094Ncvzgmsbb24/02/202502/06/2023, 06/19/2023OVID-19 Vaccine (1 - season)2025Influenza Vaccine (#1)/11/2018, 08/01/2017, 01/25/2015, Additional history existsColorectal Cancer Vamopqpzu61/15/2027 FIT-DNA Procedures Procedure NamePriorityDate/TimeAssociated DiagnosisCommentsLAB COLOGUARD?? COLON CANCER XXRFILIqtiweu07/15/2024 10:20 AM ESTBI MAMMOGRAM SCREENING TOMOSYNTHESIS FFLVUHUKCRsrulev78/31/2024 3:20 PM EST Screening mammogram for breast cancer from Last 3 Months or Most Recently Relevant to Health Maintenance Results * Cologuard?? colon cancer screening (07/04/2023 10:20 AM EST)Specimen (Source) Anatomical Location / LateralityCollection Method / VolumeCollection Time Received TimeStool Narrative Authorizing ProviderResult TypeResult StatusAlejandro MARTINEZ MOLECULAR DIAGNOSTICS ORDERABLESFinal Result * Bilateral screening mammogram with tomosynthesis (06/19/2023 3:20 PM EST) Anatomical RegionLateralityModalityBreastBilateralMammographySpecimen (Source) Anatomical Location / LateralityCollection Method / VolumeCollection Time Received Time06/21/2023 1:53 PM EST Impressions 06/21/2023 2:40 PM EST BIRADS 2 - Benign Follow-up: ??Routine Screening Mamm Board Certified Radiologists. ??Accredited by the ACR and FDA. MAMMOGRAPHY IS VERY IMPORTANT TO YOUR HEALTH. ??THE [place] [employer]IET[employer] GUIDELINES RECOMMEND THAT WOMEN [...] GeneralFamily Medicine06/12/23 Alejandro James MD [address] [place] [address] [facility] Reach06/26/24
--- OUTSIDE RECORDS SUMMARY | 2025-03-26 09:01 | XMS_ITS | Clinical Summary ---
Author Organization [employer] [facility] tem Address [id number] [address] [place] [address] Care Team Providers Care Red Hat Engineer Name Role Phone Alejandro James MD Primary Care Provider [phone] Social History Tobacco UseTypesPacks/DayYears UsedDateSmoking Tobacco: Never AssessedChildcare AnswerDate IlyleopzBdvgclnzbUxekjce47/12/2019EmploymentAnswerDate Recorded VmvqscnlomAuvutbx63/12/2019Purpose - LifeAnswerDate RecordedPurpose and direction in qtcgJdmmuou97/11/2021CommentsUnknownSex and Gender InformationValueDate RecordedSex Assigned at BirthNot on fileLegal SexFemale 12/23/2014 11:39 AM EDTGender IdentityNot on fileSexual OrientationNot on file Plan of Treatment Health MaintenanceDue DateLast DoneCommentsDepression Xdtikpoyd17/17/1972Tobacco Vgzcsmpnt13/17/1972Adult BMI Bokgjwzxz35/17/1978DTaP,Tdap and Td Vaccines (1 - Tdap)11/03/1978Zoster (Shingles) Vaccine (1 of 2)11/03/2009Fall Risk Screening 11/03/2024Influenza Ylahaqc3401/18/2025RSV ( or age 60+ yrs) (1 - 1-dose 75+ series)11/03/2034 Medical Devices Not on file Insurance Care Teams Team MemberRelationshipSpecialtyStart DateEnd Date Alejandro James MD [facility]07/27/14
--- NOTE | 2025-03-26 09:04 | CT_ITS ---
The [address] [address] Patient Name: SHERIF MARTINEZ MRN: [id number] date: 1960 Sex: F Assigned Patient Location: CT Current Patient Location: CT Accession/Order Number: [id number] Exam Date: 03/26/2025 09:17 Report Date: 03/26/2025 10:13 At the request of: PARISA HARRY DO Procedure: CT abdomen pelvis wo con CT ABDOMEN AND PELVIS WITHOUT CONTRAST CLINICAL DATA: Urgency and bilateral flank pain. Hydronephrosis of the left kidney and frequent urinary tract infections. COMPARISON: Ultrasound 03/19/2025 Spiral axial unenhanced images were obtained through the abdomen and pelvis. This CT exam was performed using one or more following dose reduction techniques: Automated exposure control, adjustment of the mA and/or kV according to patient size, or use of iterative reconstruction technique. Limited cuts through the lung bases show minor atelectasis or scarring. Evaluation of the intra-abdominal organs is slightly limited by the absence of contrast. No calcified gallstones are identified. No intrahepatic masses are seen. The spleen and adrenal glands show no acute abnormalities. There is minor heterogeneity at the head of the pancreas and slightly nodular contour of the neck. Minor adjacent fibrofatty stranding is seen. Correlation will be needed to exclude any possibility of pancreatitis. There is a small adjacent diverticulum at the third portion of duodenum. There are no renal calculi. Nodular cystic areas are seen within the medullary portion of the left kidney. This may be mild hydronephrosis however parapelvic cysts are also possible. Full evaluation is not possible without contrast and delayed imaging . There is no hydronephrosis on the right. No ureteral dilatation or stones are noted. The abdominal aorta is normal caliber. There are small retroperitoneal and mesenteric lymph nodes. No ascites is seen. Small bowel loops are not dilated. There is mild to moderate stool within the colon. Slight dextroscoliotic curvature and mild endplate spurring are seen at the spine. There is also lower lumbar facet disease. Images through the pelvis show normal caliber small bowel loops. The appendix is not definitely seen. There is mild distal colonic stool. There are a few sigmoid diverticula, without associated active inflammation. No adnexal cysts are identified. The urinary bladder is not well-distended however no obvious CT abnormalities are seen. There is no pelvic ascites. CT/CT abdomen pelvis wo con IMPRESSION: SUBTLE PERIPANCREATIC STRANDING. CLINICAL CORRELATION IS RECOMMENDED AND IF WARRANTED, FOLLOW-UP AMYLASE/LIPASE AND ENHANCED CT COULD BE CONSIDERED. LEFT PARAPELVIC RENAL CYSTS AND/OR MILD HYDRONEPHROSIS. THERE ARE NO RENAL OR URETERAL STONES. POORLY DISTENDED URINARY BLADDER, WITHOUT OBVIOUS ABNORMALITY. MINOR DIVERTICULOSIS. Impression dictated by: Anitra Patton M.D. 03/26/2025 10:13 AM Dictation Location: [place] [address] Electronically authenticated by: [id number] Y Date: 03/26/2025 10:13
== END 2025-03-26 09:00 | disposition home or self-care (01) ==
LOC: CT 08:59
PROVIDERS: PCP Family Medicine; Visit Provider Family Medicine
DX: N13.30 Unspecified hydronephrosis (principal); N39.0 Urinary tract infection, site not specified; K57.90 Diverticulosis of intestine, part unspecified, without perforation or abscess without bleeding
CPT/HCPCS: 74176

== ENCOUNTER 2025-04-09 11:43 | Outpatient (OUT) | payer MEDICARE, MEDICAID, SELFPAY ==
--- OUTSIDE RECORDS SUMMARY | 2025-04-09 11:46 | XMS_ITS | Clinical Summary ---
Author Organization [employer] [facility] tem Address [facility] [id number] [address] [place] [address] Care Team Providers Care Steel Layout Worker Name Role Phone Alejandro James MD Primary Care Provider Social History Tobacco UseTypesPacks/DayYears UsedDateSmoking Tobacco: Never AssessedChildcare AnswerDate GwpijqnmDadkihajeUhwxudh03/12/2019EmploymentAnswerDate Recorded BaxmrzaielReudbtg55/12/2019Purpose - LifeAnswerDate RecordedPurpose and direction in npmqQfbkgvi25/11/2021CommentsUnknownSex and Gender InformationValueDate RecordedSex Assigned at BirthNot on fileLegal SexFemale 12/23/2014 11:39 AM EDTGender IdentityNot on fileSexual OrientationNot on file Plan of Treatment Health MaintenanceDue DateLast DoneCommentsDepression Soqzdmbyf73/17/1972Tobacco Mhxpevkne34/17/1972Adult BMI Jmlqaeakc56/17/1978DTaP,Tdap and Td Vaccines (1 - Tdap)11/03/1978Zoster (Shingles) Vaccine (1 of 2)11/03/2009Fall Risk Screening 11/03/2024Influenza Fnmwbim3901/18/2025RSV ( or age 60+ yrs) (1 - 1-dose 75+ series)11/03/2034 Medical Devices Not on file Insurance Care Teams Team MemberRelationshipSpecialtyStart DateEnd Date Alejandro James MD [facility]07/27/14
--- OUTSIDE RECORDS SUMMARY | 2025-04-09 11:46 | XMS_ITS | Clinical Summary ---
Author Organization [facility] Healthcare Address [address] [place] [address] Care Team Providers Care Inspector Clip On Sunglasses Name Role Phone Alejandro James MD Primary Care Provider [phone] Alejandro James MD Unavailable Allergies Active AllergyReactionsCriticalityNoted [...] without aura and without status migrainosus, not xaesxpuyxhn64/24/2024 Assessment & Plan (09/10/2023 1:40 PM EDT): CHAUDHRY unchanged and increase topamax. Continue elavil. Use imitrex PRN. Assessment & Plan (06/12/2023 2:22 PM EST): CHAUDHRY more often and increase elavil. Use imitrex PRN. Chronic pain of left elbow06/12/2023hronic pain of right ankle06/12/2023 Zfcppwdnqkyn86/24/2024Hypersomnia, dfegpeeyywv37/24/2024MDD (major depressive disorder), recurrent episode, uvktkthe98/24/2024 Assessment & Plan (09/10/2023 1:40 PM EDT): Symptoms unchanged and increase zoloft. Warned will take 2-3 months to notice improvement in mood. Assessment & Plan (06/12/2023 2:22 PM EST): Symptoms worse without zoloft and resume. Warned will take 2-3 months to notice improvement in mood. Primary osteoarthritis of both rlkzer7606/12/2023 Assessment & Plan (09/10/2023 1:39 PM EDT): Pain and stiffness unchanged and continue celebrex. Increase activity and walk regularly. Assessment & Plan (06/12/2023 2:22 PM EST): Pain and stiffness unchanged and resume celebrex. Morbid ustlidr4906/12/2023 Assessment & Plan (09/10/2023 1:39 PM EDT): Discussed proper diet and regular aerobic exercise. Recommend Weight Watchers and need to limit calories and smaller portions. Need to increase activity and regular aerobic exercise several days a week for 30 minutes at a time. Seasonal allergic rhinitis due to oklxoj4606/12/2023 Assessment & Plan (09/10/2023 1:39 PM EDT): [...] celebrex. Encounter for long-term (current) use of mricutvtohg00/24/2024enign essential /04/2023 Assessment & Plan (09/10/2023 1:40 PM EDT): BP controlled and monitor PRN. Assessment & Plan (06/12/2023 2:21 PM EST): BP controlled and monitor PRN. Family History Medical HistoryRelationNameCommentsDiabetesFatherHeart diseaseFatherHypertension MotherRelationNameStatusCommentsFatherMother Social History Tobacco UseTypesPacks/DayYears UsedDateSmoking Tobacco: NeverSmokeless Tobacco: Never Tobacco Cessation:Counseling Given: Not Answered CommentsUnknownSex and Gender InformationValueDate RecordedSex Assigned at BirthNot on fileLegal NjfPvbpnc00/15/2023 11:01 PM EDTGender IdentityNot on fileSexual OrientationNot on file Last Filed Vital Signs Vital SignReadingTime TakenCommentsBlood Iqicwayv416/7604 1:14 PM EDT Tfivs73697 1:14 PM NATDefbbhvswqe69.7 ??C (98 ??F)09/10/2023 1:14 PM EDT Respiratory Yzcb225409/10/2023 1:14 PM EDTOxygen Syxifwmykm61%09/10/2023 1:14 PM EDTInhaled Oxygen Concentration--Nzdizr338 kg (284 lb)09/10/2023 1:14 PM EDT Urignx935.2 cm (5' 7 )09/10/2023 1:14 PM EDTBody Mass Index44.48009/10/2023 1:14 PM EDT Plan of Treatment Health MaintenanceDue DateLast DoneCommentsCT Cyoqakhzborf62/17/1960Colonoscopy 1959FIT1959FOBT1959Medicare Annual Wellness (AWV)1959 Fbuuaftshnrbl66/17/1960Pap Smear11/03/1980Cervical Cancer Bizjnebfn95/17/1990 HPV/Svdtwh6611/03/1989Pneumococcal Vaccine: 65+ Years (2 of 2 - PCV)08/01/2018 08/01/20178355Zmyosmqdi03/02/202502/06/2023, 06/19/2023OVID-19 Vaccine (1 - season)2025Influenza Vaccine (#1)/11/2018, 08/01/2017, 01/25/2015, Additional history existsColorectal Cancer Navnliips51/15/2027 FIT-DNA Procedures Procedure NamePriorityDate/TimeAssociated DiagnosisCommentsLAB COLOGUARD?? COLON CANCER LWHVYMWfirqvo34/15/2024 10:20 AM ESTBI MAMMOGRAM SCREENING TOMOSYNTHESIS GBAZUCZGNYxdgbjg74/31/2024 3:20 PM EST Screening mammogram for breast [...] IS VERY IMPORTANT TO YOUR HEALTH. ??THE [place] [employer] SOCIET[employer] GUIDELINES RECOMMEND THAT WOMEN 40 [...] IS VERY IMPORTANT TO YOUR HEALTH. THE [place] [employer] GUIDELINES RECOMMEND THAT WOMEN 40 [...] GeneralFamily Medicine06/12/23 Alejandro James MD [address] [place] [address] [facility] Reach06/26/24
--- NOTE | 2025-04-09 11:58 | CT_ITS ---
The [address] [address] Patient Name: SHERIF MARTINEZ MRN: [id number] date: 1960 Sex: F Assigned Patient Location: LAB Current Patient Location: LAB Accession/Order Number: [id number] Exam Date: 04/09/2025 12:55 Report Date: 04/09/2025 14:43 At the request of: PARISA HARRY DO Procedure: CT abdomen pelvis w con CT ABDOMEN AND PELVIS WITH INTRAVENOUS CONTRAST: CLINICAL HISTORY: Hydronephrosis Of Left Kidney, Acquired Cyst Of Kidney, dive COMPARISON: CT abdomen and pelvis 03/26/2025 TECHNIQUE: Spiral images were obtained through the abdomen and pelvis following the administration of intravenous contrast. This CT exam was performed using one or more following dose reduction techniques: Automated exposure control, adjustment of the mA and/or kV according to patient size, or use of iterative reconstruction technique. FINDINGS: Lung Bases: [No acute findings. Mild lung scarring.] Organs:Gallbladder portal vein pancreas spleen and adrenal glands appear unremarkable. No enhancing renal mass or hydronephrosis. Left-sided parapelvic cysts. Abdominal aorta appears normal in caliber.[ GI: Stomach is grossly unremarkable. Small bowel appears nondilated. Colonic diverticulosis.[ Pelvis:[Uterus is atrophic. Urinary bladder is grossly unremarkable.] Peritoneum/Retroperitoneum:No free air, free fluid or lymphadenopathy.[ Abd wall/Bones:Abdominal wall demonstrates no acute findings. Osseous structures demonstrate degenerative change.[ CT/CT abdomen pelvis w con IMPRESSION: No acute findings. No CT evidence of hydronephrosis. Impression dictated by: Mars Palm Jr., D.O. 04/09/2025 2:43 PM Dictation Location: [place] [address] Electronically authenticated by: [id number] Y Date: 04/09/2025 14:43
[2025-04-09 12:03] LABS: Estimated GFR (African America >60 (>=60 mL/min/1.73m^2); Estimated GFR (Non-African Ame >60 (>=60 mL/min/1.73m^2)
== END 2025-04-09 11:44 | disposition home or self-care (01) ==
LOC: LAB 11:43
PROVIDERS: Pathology Anatomic Pathology & Clinical Pathology; PCP Family Medicine; Visit Provider Family Medicine
DX: N13.30 Unspecified hydronephrosis (principal); N28.1 Cyst of kidney, acquired; K57.30 Diverticulosis of large intestine without perforation or abscess without bleeding
CPT/HCPCS: 36415; 74177; 82565; Q9967